=== PATIENT | female | born 1950 | race Two or more races ===

== ENCOUNTER 2025-11-08 22:34 | Emergency (ER) | payer MEDICARE, OTHER ==
[~2025-11-08] VITALS: Ht 172.7 cm; Wt 63.5 kg
[2025-11-08] MEDS: IV NS 0.9% 1,000 ML BAG IV ONE (23:10)
[2025-11-08] MEDS ORDERED: LEVETIRACETAM (500MG) 500 MG/5 ML VIAL IV ONE ×2 (23:21→23:22)
[2025-11-08 23:25] LABS: PLATELET COUNT (AUTO) 336 K/uL (150-450); RED BLOOD CELL COUNT(AUTO) 3.93 MIL/uL (4.0-5.2); RED CELL DISTRIBUTION WIDTH 12.7 % (11.5-15.0); WHITE BLOOD COUNT (AUTO) 5.7 K/uL (4.3-11.0)
[2025-11-08 23:32] LABS: CALCIUM, SERUM 9.0 mg/dL (8.5-10.1); CREATININE 0.8 mg/dL (0.6-1.3); SODIUM SERUM 138 mmol/L (136-145); UREA NITROGEN, BLOOD 20 mg/dL (7-18)
[2025-11-08 23:37] LABS: ASPARTATE AMINOTRANSFERASE 24 U/L (15-37)
[2025-11-08 23:38] LABS: TOTAL PROTEIN, SERUM 7.6 g/dL (6.4-8.2)
[2025-11-08 23:40] LABS: LACTIC ACID 1.9 mmol/L (0.4-2.0)
[2025-11-08] MEDS: LEVETIRACETAM (500MG) 1,000 MG in IV NS 0.9% 90 ML IV STA (23:56)
[2025-11-09 01:05] VITALS: TEMP 97.8
[2025-11-09 02:13] VITALS: BP 142/82; O2SAT 97
== END 2025-11-09 02:13 | disposition home or self-care (01) ==
LOC: ER 22:36
DX: R56.9 Unspecified convulsions (principal); F41.9 Anxiety disorder, unspecified; I10 Essential (primary) hypertension; Z79.899 Other long term (current) drug therapy
CPT/HCPCS: 99291; 96365; 70450; 96361; 93005; 71045; 85025; 83605; 83735; 36415; 80053; J7030; J1953 ×3